=== PATIENT | male | born 1990 | race Caucasian/White ===

== ENCOUNTER 2022-12-11 13:51 | Emergency (ER) | payer MEDICAID ==
[~2022-12-11] VITALS: Ht 165.1 cm; Wt 72.6 kg
[2022-12-11 13:51] VITALS: BP_SYST 127
--- NOTE | 2022-12-11 13:51 | NUR ---
BROUGHT IN BY RAUL Ronquillo AND TRIAGED. VSS, SENT TO WAITING ROOM TO WAIT FOR ER BED.
--- NOTE | 2022-12-11 13:58 | NUR ---
PT STATES AFTER USING HEROIN, HE FELL FORWARD AND HAS ABRASION TO FOREHEAD. PT IS ALERT AND ORIENTED X3.
--- NOTE | 2022-12-11 14:14 | NUR ---
AFTER BEING TRIAGED, PT LEFT THE HOSPITAL.
== END 2022-12-11 14:14 | disposition left against medical advice (07) ==
LOC: SED 13:51
DX: S00.81XA Abrasion of other part of head, initial encounter (principal); T40.1X1A Poisoning by heroin, accidental (unintentional), initial encounter; Z53.21 Procedure and treatment not carried out due to patient leaving prior to being seen by health care provider; X58.XXXA Exposure to other specified factors, initial encounter; Y93.89 Activity, other specified; Y92.89 Other specified places as the place of occurrence of the external cause; Y99.8 Other external cause status